=== PATIENT | female | born 1955 | race African-American/Black ===

== ENCOUNTER → 2021-08-31 | Day surgery (SDC) | payer OTHER | END | disposition home or self-care (01) | LOC: JRADUS-SUR 09:02 | PROVIDERS: ATTEND Internal Medicine Endocrinology, Diabetes & Metabolism | PROC: 07B63ZX Excision of Left Axillary Lymphatic, Percutaneous Approach, Diagnostic (ICD-10-PCS; principal; 2021-08-31) | PROC: BH41ZZZ Ultrasonography of Left Breast (ICD-10-PCS; 2021-08-31) | DX: R59.0 Localized enlarged lymph nodes (principal) | CPT/HCPCS: 19083; 87899; 88305-TC; A4648 ==